=== PATIENT | male | born 1955 | race Caucasian/White ===

== ENCOUNTER 2018-09-04 01:23 | Emergency (ER) | payer MEDICARE, OTHER ==
[2018-09-04] MEDS ORDERED: SODIUM CHLORIDE 0.9% 1,000 ML IV STA (01:26)
--- NOTE | 2018-09-04 01:26 | ED ---
General Adult HPI - General Stated complaint: POSS CVA Time Seen by Provider: 09/04/18 01:26 - History of Present Illness Initial comments: Shon is a 62-year-old male with extensive past medical history presents the emergency department today for evaluation of left-sided weakness and fall. Patient reports that at approximately 1 AM he attempted to stand from his couch , his left side was completely weak and he fell to his left side striking his left hand and his head on the ground. Patient was unable to get himself back up due to his left-sided weakness and called EMS. EMS arrived on scene the patient was awake alert oriented with left-sided weakness and noted abrasion to the left forehead. Patient was noted to be profoundly hypertensive with blood pressures in the 240s over 140 range and a blood glucose of 117. Patient reports that he has very poorly controlled blood pressure and that occasionally has blood pressure is greater than 300/180 he's had to come to the hospital for this in the past. He admits to being noncompliant with his antihypertensives. Patient also reports that he has mild weakness in his left arm secondary to a previous rotator cuff surgery however the weakness in his left leg and inability to ambulate was new and the weakness in his left arm has never been this severe. - Related Data Home Medications Medication Instructions Recorded Confirmed Unable To Assess [Unable to Assess] 09/04/18 09/04/18 Allergies Allergy/AdvReac Type Severity Reaction Status Date / Time steroids Allergy Unknown Uncoded 09/04/18 03:01 Review of Systems ROS Statement: Those systems with pertinent positive or pertinent negative responses have been documented in the HPI. ROS Other: All systems not noted in ROS Statement are negative. Past Medical History Past Medical History: Diabetes Mellitus, Hypertension General Exam - General Exam Comments Initial Comments: GENERAL: Chronically ill-appearing, appears older than stated age HENT: Normocephalic, Abrasion the left forehead EYES: The sclera were anicteric and conjunctiva were pink and moist. Extraocular movements were intact and pupils were equal round and reactive to light. Eyelids were unremarkable. PULMONARY: Unlabored respirations. Good breath sounds bilaterally. No audible rales rhonchi or wheezing was noted. CARDIOVASCULAR: There is a regular rate and rhythm without any murmurs gallops or rubs. ABDOMEN: Soft and nontender with normal bowel sounds. SKIN: Skin is clear with no lesions or rashes and otherwise unremarkable. NEUROLOGIC: Patient is alert and oriented x3. Cranial nerves II through XII are grossly intact. Motor and sensory are also intact. Normal speech, volume and content. Symmetrical smile. MUSCULOSKELETAL: Normal extremities with adequate strength and full range of motion. No lower extremity swelling or edema. No calf tenderness. LYMPHATICS: No significant lymphadenopathy is noted PSYCHIATRIC: Normal psychiatric evaluation. Limitations: no limitations Course Vital Signs 09/04/18 09/04/18 09/04/18 01:27 01:40 01:45 Temperature 98.3 F Pulse Rate 84 84 80 Respiratory 18 22 23 Rate Blood Pressure 241/132 268/130 227/118 O2 Sat by Pulse 96 95 96 Oximetry 09/04/18 09/04/18 09/04/18 01:50 02:05 02:20 Temperature 98.2 F 98.4 F 98.4 F Pulse Rate 72 113 H 101 H Respiratory 24 18 20 Rate Blood Pressure 244/122 183/94 190/94 O2 Sat by Pulse 98 93 L 93 L Oximetry 09/04/18 09/04/18 02:35 02:56 Temperature 98.2 F 98.2 F Pulse Rate 110 H 113 H Respiratory 18 20 Rate Blood Pressure 184/110 155/142 O2 Sat by Pulse 93 L 95 Oximetry EKG Findings - EKG Comments: EKG Findings:: EKG obtained at 1:28 AM, rate is 80 rhythm is sinus tach normal axis normal intervals no acute ST elevations or depressions no evidence of acute ischemia or infarction Medical Decision Making - Medical Decision Making Patient called in to the ER as a priority 1 for possible stroke with head trauma Patient was seen and evaluated immediately upon arrival to the emergency department, patient was awake alert oriented no speech deficits no cranial nerve deficits noted to have weakness of the left arm and left leg initial NIH score on arrival is to Patient has uncontrolled blood pressure at the time of arrival according drip was ordered CT of the head and C-spine due to the head trauma ordered as well as a CTA Vision care was discussed with no intervention S Dr. Johnston who reviewed patient's CT and CTA recommended no TPA no intervention Patient's blood pressure improving on [facility] with no acute findings no traumatic injuries identified aside from the missing tooth abrasion to the left hand At this time I feel the patient warrants transfer to a facility with neuro availability for further evaluation by neurology and trauma team. I suspect the patient's symptoms are secondary to a hypertensive emergency or hypertensive encephalopathy however stroke with rapidly resolving symptoms cannot be ruled out at this time. Patient repeatedly requesting Afrin nasal spray he states that he uses constantly to help him breathe. 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 I advised the patient that Afrin as a vasoconstrictor the cane cause hypertension and therefore is contraindicated in the setting of hypertensive emergency. Patient agitated but understanding. Patient's symptoms seem to have resolved he sitting in the bed comfortably taxing on his phone doesn't have any obvious weakness in his left arm. Patient has not attempted to ambulate at this time. I advised the patient he will need to be transferred to facility with neurology capabilities he is agreeable to transfer to [facility]. Patient care was discussed with Dr. Young at [facility] who accepts the transfer will notify neurology and trauma teams of the patient's transfer. - Lab Data Result diagrams: 09/04/18 01:34 09/04/18:34 Lab Results 09/04/18 09/04/18 09/04/18 Range/Units 01:34 01:34 01:34 WBC 7.1 (3.8-10.6) k/uL RBC 5.05 (4.30-5.90) m/uL Hgb 16.5 (13.0-17.5) gm/dL Hct 48.3 (39.0-53.0) % MCV 95.7 (80.0-100.0) fL MCH 32.7 (25.0-35.0) pg MCHC 34.2 (31.0-37.0) g/dL RDW 14.0 (11.5-15.5) % Plt Count 153 (150-450) k/uL Neutrophils % 66 % Lymphocytes % 22 % Monocytes % 8 % Eosinophils % 2 % Basophils % 1 % Neutrophils # 4.7 (1.3-7.7) k/uL Lymphocytes # 1.6 (1.0-4.8) k/uL Monocytes # 0.6 (0-1.0) k/uL Eosinophils # 0.1 (0-0.7) k/uL Basophils # 0.0 (0-0.2) k/uL PT (9.0-12.0) sec INR (<1.2) APTT (22.0-30.0) sec Sodium 139 (137-145) mmol/L Potassium 3.6 (3.5-5.1) mmol/L Chloride 102 (98-107) mmol/L Carbon Dioxide 31 H (22-30) mmol/L Anion Gap 6 mmol/L BUN 21 H (9-20) mg/dL Creatinine 1.12 (0.66-1.25) mg/dL Est GFR (CKD-EPI)AfAm 81 (>60 ml/min/1.73 sqM) Est GFR (CKD-EPI)NonAf 70 (>60 ml/min/1.73 sqM) Glucose 110 H (74-99) mg/dL Calcium 9.2 (8.4-10.2) mg/dL Total Bilirubin 0.9 (0.2-1.3) mg/dL AST 27 (17-59) U/L ALT 34 (21-72) U/L Alkaline Phosphatase 65 (38-126) U/L Total Creatine Kinase 81 (55-170) U/L CK-MB (CK-2) 2.2 (0.0-2.4) ng/mL CK-MB (CK-2) Rel Index 2.7 Troponin I 0.031 (0.000-0.034) ng/mL Total Protein 6.9 (6.3-8.2) g/dL Albumin 4.1 (3.5-5.0) g/dL 09/04/18 Range/Units 01:34 WBC (3.8-10.6) k/uL RBC (4.30-5.90) m/uL Hgb (13.0-17.5) gm/dL Hct (39.0-53.0) % MCV (80.0-100.0) fL MCH (25.0-35.0) pg MCHC (31.0-37.0) g/dL RDW (11.5-15.5) % Plt Count (150-450) k/uL Neutrophils % % Lymphocytes % % Monocytes % % Eosinophils % % Basophils % % Neutrophils # (1.3-7.7) k/uL Lymphocytes # (1.0-4.8) k/uL Monocytes # (0-1.0) k/uL Eosinophils # (0-0.7) k/uL Basophils # (0-0.2) k/uL PT 10.0 (9.0-12.0) sec INR 0.9 (<1.2) APTT 24.0 (22.0-30.0) sec Sodium (137-145) mmol/L Potassium (3.5-5.1) mmol/L Chloride (98-107) mmol/L Carbon Dioxide (22-30) mmol/L Anion Gap mmol/L BUN (9-20) mg/dL Creatinine (0.66-1.25) mg/dL Est GFR (CKD-EPI)AfAm (>60 ml/min/1.73 sqM) Est GFR (CKD-EPI)NonAf (>60 ml/min/1.73 sqM) Glucose (74-99) mg/dL Calcium (8.4-10.2) mg/dL Total Bilirubin (0.2-1.3) mg/dL AST (17-59) U/L ALT (21-72) U/L Alkaline Phosphatase (38-126) U/L Total Creatine Kinase (55-170) U/L CK-MB (CK-2) (0.0-2.4) ng/mL CK-MB (CK-2) Rel Index Troponin I (0.000-0.034) ng/mL Total Protein (6.3-8.2) g/dL Albumin (3.5-5.0) g/dL Critical Care Time Critical Care Time: Yes Total Critical Care Time: 45 Critical Care Time: Critical Care Critical care time was exclusive of separately billable procedures and treating other patients and teaching time. Critical care was necessary to treat or prevent imminent or life-threatening deterioration. Critical care was time spent personally by me on the following activities: development of treatment plan with patient or surrogate, discussions with consultants, discussions with primary provider, evaluation of patient's response to treatment, examination of patient, obtaining history from patient or surrogate, ordering and performing treatments and interventions, ordering and review of laboratory studies, ordering and review of radiographic studies, pulse oximetry, re-evaluation of patient's condition and review of old charts. Disposition Clinical Impression: Left-sided weakness, Fall at home, Closed head injury, Broken tooth due to trauma without complication, Abrasion of left hand, Hypertensive emergency without congestive heart failure Disposition: OTHER INSTITUTION NOT DEFINED Condition: Serious Referrals: Nonstaff,Physician [Primary Care Provider] - 1-2 days - Out of Hospital Transfer - Req. Specs Out of Hospital Transfer - Requested Specifics: Other Emergency Center ( [facility])
[2018-09-04] MEDS ORDERED: niCARdipine 25 MG in SODIUM CHLORIDE 0.9% 240 ML IV SCH (01:30)
[2018-09-04 01:53] LABS: Basophils % (A) 1 %; Eosinophils # (A) 0.1 k/uL (0-0.7); Eosinophils % (A) 2 %; HCT 48.3 % (39.0-53.0); HGB 16.5 gm/dL (13.0-17.5); Lymphocytes # (A) 1.6 k/uL (1.0-4.8); Lymphocytes % (A) 22 %; MCH 32.7 pg (25.0-35.0); MCHC 34.2 g/dL (31.0-37.0); MCV 95.7 fL (80.0-100.0); Mean Platelet Volume 7.5; Monocytes # (A) 0.6 k/uL (0-1.0); Monocytes % (A) 8 %; Neutrophils # (A) 4.7 k/uL (1.3-7.7); Neutrophils % (A) 66 %; Platelet Count 153 k/uL (150-450); RBC 5.05 m/uL (4.30-5.90); WBC 7.1 k/uL (3.8-10.6)
--- NOTE | 2018-09-04 01:58 | CT ---
EXAMINATION TYPE: CT brain miky melvin DATE OF EXAM: 09/04/2018 COMPARISON: None HISTORY: code stroke weakness neck pain CT DLP: 1370.1 mGycm Automated exposure control for dose reduction was used. TECHNIQUE: CT scan of the head and cervical spine are performed without contrast. FINDINGS: Ventricles have fairly normal size. There is no mass effect nor midline shift. There is n o sign of intracranial hemorrhage. The calvarium is intact. There is some mild white matter hypodensi ty in the posterior parietal lobes. Cervical vertebra have normal alignment. There is mild narrowing of disc spaces. There is minor spurr ing of the endplates. There is posterior mild disc herniation at C3-4 C4-5 with slight narrowing of t he spinal canal. There is a 6.4 mm relative spinal stenosis at C3-4. There is uncovertebral spurring on the left side at C3-4 with neural foraminal narrowing. There is bilateral uncovertebral spurring a t C4-5 C5-6 with neural foraminal impingement. The facet joints are intact. There is no cervical spin e fracture. There is mild hypertrophic cervical facet arthropathy. IMPRESSION: Spondylotic changes. No fracture. There is C3-4 bony spinal stenosis. Multilevel neural foraminal imp ingement. There is mild white matter hypodensity in the posterior parietal lobes suggestive of mild chronic sma ll vessel ischemia. No acute intracranial abnormality.
--- NOTE | 2018-09-04 01:59 | XR ---
EXAMINATION TYPE: XR chest 2V DATE OF EXAM: 09/04/2018 COMPARISON: NONE HISTORY: Left-sided weakness TECHNIQUE: Frontal and lateral views of the chest are obtained. FINDINGS: There is no heart failure nor confluent pneumonic infiltrate. Costophrenic angles are alexis r. There are calcified granulomata scattered in the lungs. The bony thorax is intact. IMPRESSION: No active cardiopulmonary disease.
[2018-09-04 02:01] LABS: Albumin 4.1 g/dL (3.5-5.0); Calcium 9.2 mg/dL (8.4-10.2); Potassium 3.6 mmol/L (3.5-5.1); Total Bilirubin 0.9 mg/dL (0.2-1.3); Total Protein 6.9 g/dL (6.3-8.2)
[2018-09-04 02:07] LABS: INR 0.9 (<1.2)
[2018-09-04 02:20] LABS: Creatine Kinase MB 2.2 ng/mL (0.0-2.4); Troponin I 0.031 ng/mL (0.000-0.034)
--- NOTE | 2018-09-04 02:22 | CT ---
EXAMINATION TYPE: CODE STROKE: CTA head neck DATE OF EXAM: 09/04/2018 HISTORY: code stroke COMPARISON: None CT DLP: 359.7 mGycm. Automated Exposure Control for Dose Reduction was Utilized. TECHNIQUE: CTA scan of the neck is performed with IV Contrast, patient injected with 65mL mL of Isov ue 370, axial images are obtained, coronal and sagittal reformatted images are reviewed. Three-D constanza nstructed images are created on an independent workstation and reviewed. FINDINGS: There is normal branching pattern of the great vessels on the aortic arch. There is bilateral arteria l flow in the subclavian arteries. There is arterial flow in both vertebral arteries. Left vertebral artery is larger than the right. Th ere is arterial flow in the common internal and external carotid arteries bilaterally. There is mild plaque formation at the carotid artery bifurcations. There is approximate 35% stenosis at the origin right internal carotid artery. There is 15% stenosis origin left internal carotid artery. There is no evidence of carotid or vertebral artery aneurysm or dissection. There is arterial flow in the verteb robasilar artery system. There is arterial flow in the anterior middle and posterior cerebral arterie s. I see no evidence of intracranial aneurysm or neovascularity. There is no mass effect. There is no evidence of hemodynamic stenosis. There is normal contrast opacification of the venous sinuses. The basilar artery fills mostly from the left side. IMPRESSION: Mild atherosclerotic plaque at the carotid artery bifurcations without evidence of hemody namic stenosis. Negative CT angiogram of the brain. No evidence of intracranial arterial stenosis.
[2018-09-04 03:53] VITALS: BP 189/96; PULSE 117; RESP 22; TEMP 98
== END 2018-09-04 04:05 | disposition other institution (70) ==
LOC: EC 01:23
DX: S02.5XXA Fracture of tooth (traumatic), initial encounter for closed fracture (principal); S00.81XA Abrasion of other part of head, initial encounter; S60.512A Abrasion of left hand, initial encounter; I10 Essential (primary) hypertension; E11.65 Type 2 diabetes mellitus with hyperglycemia; Z87.828 Personal history of other (healed) physical injury and trauma; Z91.14 Patient's other noncompliance with medication regimen; Z88.8 Allergy status to other drugs, medicaments and biological substances; W19.XXXA Unspecified fall, initial encounter
CPT/HCPCS: 36415; 93005; 80053; 82550; 82553; 84484; 85025; 85610; 85730; 71046; 72125; 70496; 70450; 70498; 99291; 96365; 96366; Q9967